=== PATIENT | female | born 1960 | race Caucasian/White ===

== ENCOUNTER 2018-07-27 09:15 | Inpatient (IN) | payer OTHER ==
[~2018-07-27] VITALS: Ht 152.4 cm; Wt 78.5 kg
[2018-07-27] MEDS ORDERED: CARVEDILOL25 MG PO (09:28)
[2018-07-27] MEDS ORDERED: NORVASC10 MG PO (09:28)
== END 2018-08-01 14:01 | disposition home or self-care (01) | DRG 581 ==
LOC: O/R 07-31 05:30 → SURH 07-31 09:15
PROVIDERS: Plastic Surgery; ADMIT Surgery
PROC: 0HHV0NZ Insertion of Tissue Expander into Bilateral Breast, Open Approach (ICD-10-PCS; 2018-07-31)
PROC: C71L1ZZ Planar Nuclear Medicine Imaging of Upper Chest Lymphatics using Technetium 99m (Tc-99m) (ICD-10-PCS; 2018-07-31)
PROC: 0HBV0ZZ Excision of Bilateral Breast, Open Approach (ICD-10-PCS; principal; 2018-07-31 09:30)
PROC: 07B60ZZ Excision of Left Axillary Lymphatic, Open Approach (ICD-10-PCS; 2018-07-31 09:30)
DX: C50.212 Malignant neoplasm of upper-inner quadrant of left female breast (principal); Z90.13 Acquired absence of bilateral breasts and nipples
CPT/HCPCS: 19303; 38525; 38792; 19357; 78195; A9541

== ENCOUNTER 2018-10-08 10:23 | Outpatient (CLI) | payer OTHER ==
[~2018-10-08 10:23] MED LIST: CARVEDILOL25 MG PO; NORVASC10 MG PO
[2018-10-08] MEDS ORDERED: FEMARA2.5 MG PO (15:01)
== END 2018-10-08 10:46 | disposition home or self-care (01) ==
LOC: EKG 10:23
DX: D05.12 Intraductal carcinoma in situ of left breast (principal); Z01.812 Encounter for preprocedural laboratory examination; Z01.810 Encounter for preprocedural cardiovascular examination

== ENCOUNTER 2018-10-12 06:00 | Day surgery (SDC) | payer OTHER ==
[~2018-10-12 06:00] MED LIST changes: +FEMARA2.5 MG PO
== END 2018-10-12 14:30 | disposition home or self-care (01) ==
LOC: CIR.AMB 06:00 → SURH 07:19 → EDSTATUS 07:19 → CIR.AMB 07:20
PROVIDERS: Plastic Surgery
PROC: 0HPT0JZ Removal of Synthetic Substitute from Right Breast, Open Approach (ICD-10-PCS; 2018-10-12)
PROC: 0HRV0JZ Replacement of Bilateral Breast with Synthetic Substitute, Open Approach (ICD-10-PCS; 2018-10-12)
PROC: 0H0V0JZ Alteration of Bilateral Breast with Synthetic Substitute, Open Approach (ICD-10-PCS; 2018-10-12)
PROC: 0HPU0JZ Removal of Synthetic Substitute from Left Breast, Open Approach (ICD-10-PCS; principal; 2018-10-12 23:00)
DX: D05.12 Intraductal carcinoma in situ of left breast (principal); Z90.13 Acquired absence of bilateral breasts and nipples
CPT/HCPCS: 19330; 19342; 19366; C1789